=== PATIENT | female | born 1960 | race African-American/Black ===

== ENCOUNTER 2019-11-12 | Emergency (ER) | payer OTHER ==
[~2019-11-12] MED LIST: CELEBREX200 MG OR; CELEXA20 MG OR; DILANTIN30 MG OR; DOXYCYC MONO100 M1 OR; HYDROCHLOROT25 MG OR; LORTAB 5 OR; NAPROSYN500 MG OR; RESTORIL30 MG OR; THORAZINE10 MG OR; THORAZINE200 MG OR; ULTRAM50 MG OR
== END 2019-11-12 07:22 | disposition home or self-care (01) ==
DX: M48.061 Spinal stenosis, lumbar region without neurogenic claudication (principal); E11.9 Type 2 diabetes mellitus without complications; I10 Essential (primary) hypertension

== ENCOUNTER 2022-02-25 19:29 | Emergency (ER) | payer OTHER ==
[~2022-02-25] VITALS: Ht 165.1 cm; Wt 116.0 kg
[2022-02-25 19:42] VITALS: BP 144/79
[2022-02-25 20:06] LABS: HEMATOCRIT 37.3 % (37.0-47.0); HEMOGLOBIN 11.3 g/dl (12.0-16.0); IMMATURE GRANULOCYTES 0.2 % (0.0-5.0); MEAN CELL VOLUME 81.6 fL CALC (80.0-100.0); MEAN CORPUSCULAR HGB 24.7 pG CALC (26.0-32.0); MEAN CORPUSCULAR HGB CONC 30.3 g/dL CAL (32.0-36.0); NEUT# 4.35 thou/uL (2.00-7.15); RED BLOOD COUNT 4.57 mill/uL (4.20-5.60); RED CELL DISTRI WIDTH 13.3 % (11.5-15.5)
[2022-02-25 20:32] LABS: ALBUMIN 3.9 g/dL (3.2-5.0); CREATININE 1.5 mg/dL (0.5-1.0); POTASSIUM 3.8 mmol/l (3.5-5.1)
[2022-02-25 20:40] LABS: BILIRUBIN, TOTAL 0.6 mg/dL (0.0-1.4)
[2022-02-25] MEDS ORDERED: IMODIUM2 MG PO (22:40)
[2022-02-25] MEDS ORDERED: PROMETHAZINE HY25 M1 PO (22:40)
[2022-02-25 23:12] VITALS: BP 144/79
== END 2022-02-25 23:30 | disposition home or self-care (01) ==
LOC: ED 19:29
PROVIDERS: Family Medicine
DX: A08.4 Viral intestinal infection, unspecified (principal); I10 Essential (primary) hypertension; E11.9 Type 2 diabetes mellitus without complications; Z98.84 Bariatric surgery status
CPT/HCPCS: Q9967